=== PATIENT | female | born 1970 | race Caucasian/White ===

== ENCOUNTER 2018-05-31 18:36 | Emergency (ER) | payer OTHER ==
[~2018-05-31] VITALS: Ht 160 cm; Wt 70.0 kg
[2018-05-31 18:47] VITALS: Ht 160 cm; Wt 70.0 kg
[2018-05-31] MEDS ORDERED: TENORMIN50 MG PO (18:49)
[2018-05-31] MEDS ORDERED: ZOVIRAX200 MG PO (18:49)
[2018-05-31 20:17] LABS: BASOPHILS 0.2 % (0-2); EOSINOPHILS 1.2 % (0-7); HEMATOCRIT 40.2 % (36.0-48.0); HEMOGLOBIN 14.3 g/dL (12-16); IMMATURE GRANULOCYTES 0.2 % (0-5); LYMPHOCYTES 11.5 % (15-50); MCH 33.1 pg (26.0-34.0); MCHC 35.6 g/dL (31.0-37.0); MCV 93.1 fL (80.0-100.0); MEAN PLATELET VOLUME 9.8 fL (7.4-10.4); MONOCYTES 6.4 % (2-11); NEUTROPHILS 80.5 % (40-80); PLATELET COUNT 207 10x3/uL (130-400); RBC 4.32 10x6/uL (4.00-5.40); RDW 12.9 % (11.5-14.5); WBC 11.8 10x3/uL (4.8-10.8)
[2018-05-31 20:34] LABS: ALKALINE PHOSPHATASE 66 U/L (46-116); ALT (SGPT) 19 U/L (10-68); BILIRUBIN - TOTAL 0.73 mg/dL (0.2-1.3); CALC OSMOLALITY 263 mosm/kg (275-300); CALCIUM 8.6 mg/dL (8.5-10.1); CARBON DIOXIDE 27.5 mmol/L (21.0-32.0); CHLORIDE - SERUM 99 mmol/L (98-107); CREATININE - SERUM 0.8 mg/dL (0.6-1.3); GLUCOSE 87 mg/dL (74-106); POTASSIUM - SERUM 4.2 mmol/L (3.5-5.1); PROTEIN - SERUM 8.1 g/dL (6.4-8.2); SODIUM 133 mmol/L (136-145); UREA NITROGEN 11 mg/dL (7-18); eGFR NON AFRICAN AMERICAN 81 mL/min (90-120)
[2018-05-31 22:36] VITALS: BP 142/81
== END 2018-05-31 22:37 | disposition home or self-care (01) ==
LOC: D.ER 18:36
PROVIDERS: Family Medicine
DX: K20.9 Esophagitis, unspecified (principal); K21.9 Gastro-esophageal reflux disease without esophagitis